=== PATIENT | male | born 1980 | race Native Hawaiian/Other Pacific Islander ===

== ENCOUNTER 2022-12-09 15:24 | Outpatient (CLI) | payer OTHER | END 2022-12-09 19:25 | disposition home or self-care (01) | LOC: CT 15:24 | PROVIDERS: ATTEND Nurse Practitioner | DX: R07.89 Other chest pain (principal); I10 Essential (primary) hypertension; R53.83 Other fatigue; Z82.49 Family history of ischemic heart disease and other diseases of the circulatory system ==